=== PATIENT | male | born 1950 | race Caucasian/White ===

== ENCOUNTER → 2017-12-28 | Day surgery (SDC) | payer OTHER, MEDICARE ==
[~2017-12-28] VITALS: Ht 175.3 cm; Wt 78.0 kg
[~2017-12-28] MED LIST: ASPIRIN EC81 M1 PO; CO Q-10100 MG PO; MAGNESIUM250 M2 PO; MULTIVITAMINS1 EAC9 PO; OCUVITE SOFTGE1 EACH PO; TURMERIC500 M2 PO; VITAMIN A25000 UNIT PO; VITAMIN B-12500 MC2 PO; VITAMIN C1000 M4 PO; VITAMIN D1000 UNIT PO; ZINC50 M2 PO
--- NOTE | 2017-12-28 14:09 | Operative Report ---
Operative/Inv Procedure Report Surgery Date: 12/28/17 Name of Procedure: Secondary intraocular lens placement right eye Pre-Operative Diagnosis: Aphakia right eye Post-Operative Diagnosis: Same Estimated Blood Loss: none Surgeon/Editor & Co Founder: Chidi Chaidez MD Anesthesia: local monitored anesthesi, block Complications: None Operative/Procedure Note Note: The patient was known to have aphakia of the right eye. The risks, benefits, and alternatives to surgery were discussed at length with the patient. Informed consent was obtained. The patient was brought to the operating room where they were placed under propofol sedation. A peribulbar block was placed in the right eye without complication. The right eye was prepped and draped under normal sterile fashion. A speculum was placed in the right eye with good exposure. Markings were placed superiorly and inferiorly at the limbus exactly 180 apart. Additional markings were placed 2 mm posterior to the limbus at these downing, as well as to markings 2 mm counterclockwise. Paracenteses were made superiorly and inferiorly as well as nasally. The anterior chamber was filled with viscoelastic. An anterior chamber maintainer was placed nasally. A temporal clear cornea incision was made approximately 3-1/2 mm in length. An intraocular lens CT Ronel 602 of power 15.0 was verified and confirmed. It was folded and placed in the anterior chamber with the trailing haptic external to the wound. A bent 30-gauge needle was inserted at the inferior downing through conjunctiva with an intra-scleral tunnel. Using intraocular forceps the lead haptic was placed into the lumen of the needle without complication. The needle was left in the scleral tunnel. A similar procedure was used to place the trailing haptic into a bent 30-gauge needle through the superior markings. The haptics were externalized. Using low-temperature cautery the ends of the haptics were melted to create flanges. These flanges were tucked into the sclera without complication. Viscoelastic was irrigated and aspirated from the eye. 10-0 nylon sutures were used to close the incisions. The eye was filled with balanced salt solution and filled to physiologic pressure. The intraocular lens was found to be stable and centered. Some conjunctival soft testing and dexamethasone was placed. Speculum was removed. Patch and shield was placed on the eye and the patient was brought to the recovery area, without complication, where instructions were given to follow-up the next day for routine postoperative care.
== END ==
LOC: STS 01:16
DX: H27.01 Aphakia, right eye (principal)
CPT/HCPCS: J2001; J2250; V2632